=== PATIENT | male | born 1955 | race Caucasian/White ===

== ENCOUNTER 2022-01-01 16:48 | Inpatient (IN) | payer OTHER ==
[~2022-01-01] VITALS: Ht 167.6 cm; Wt 79.4 kg
[~2022-01-01 16:48] MED LIST: ALBUTEROL2.5 MG/3 M INH; AUGMENTIN 875-1 EACH PO; HYDROCODON-ACE1 EAC6 PO; LIPITOR40 MG PO; NABUMETONE750 MG PO; VIBRAMYCIN100 MG PO
[2022-01-01 17:42] LABS: WHITE BLOOD COUNT 12.1 K/UL (4.5-11.0)
[2022-01-01] MEDS ORDERED: HYDROXYCHLOROQ200 MG PO (21:45)
[2022-01-01] MEDS ORDERED: METHOTREXATE T2.5 MG PO (21:46)
[2022-01-01] MEDS ORDERED: OMEPRAZOLE20 MG PO (21:46)
[2022-01-01] MEDS ORDERED: FOLIC ACID1 MG PO (21:47)
[2022-01-02 04:51] LABS: RED BLOOD COUNT 1.68 M/UL (4.20-5.50); WHITE BLOOD COUNT 7.8 K/UL (4.5-11.0)
[2022-01-02 04:53] LABS: HEMOGLOBIN 4.9 gm/dl (14.0-17.5)
--- NOTE | 2022-01-02 05:10 | NUR ---
01/01/2022 @ APPROX 22:50 - Lab employee called this RN regarding patient's blood type. Employee stated that patient has a "special antibody" in his blood that she couldn't determine, therefore she had to send a blood sample to the [facility] to determine what that antibody is to get a correct crossmatch of blood.
--- NOTE | 2022-01-02 05:19 | NUR ---
Lab employee called this RN at this time. Stated she got in contact with the [facility]. The Center told lab employee that it would be another 1-2 hours before the units of blood are here for patient to receive.
[2022-01-02] MEDS ORDERED: LORATADINE10 MG PO (14:31)
[2022-01-02] MEDS ORDERED: FERROUS SULFAT325 MG PO (14:31)
[2022-01-02] MEDS ORDERED: MONTELUKAST SOD10 MG PO (14:32)
[2022-01-02] MEDS ORDERED: PROAIR HFA8.5 GM INH (17:01)
[2022-01-03 05:30] LABS: HEMOGLOBIN 7.4 gm/dl (14.0-17.5); WHITE BLOOD COUNT 6.4 K/UL (4.5-11.0)
[2022-01-03 05:32] LABS: RED BLOOD COUNT 2.56 M/UL (4.20-5.50)
[2022-01-03 07:12] LABS: HBSAG SCREEN Negative (Negative); HEP B CORE AB, TOT Negative (Negative); HEP C VIRUS AB <0.1 (0.0-0.9)
[2022-01-03 09:14] LABS: ANTISTREPTOLYSIN O AB <20.0 IU/mL (0.0-200.0); COMPLEMENT C3, SERUM 80 mg/dL (82-167); COMPLEMENT C4, SERUM 26 mg/dL (12-38)
[2022-01-03 13:09] LABS: ANTI-DSDNA ANTIBODIES 1 IU/mL (0-9)
[2022-01-04 12:32] LABS: RED BLOOD COUNT 2.41 M/UL (4.20-5.50)
[2022-01-04 12:34] LABS: WHITE BLOOD COUNT 3.8 K/UL (4.5-11.0)
[2022-01-04 12:35] LABS: HEMOGLOBIN 6.9 gm/dl (14.0-17.5)
[2022-01-05 05:18] LABS: HEMOGLOBIN 8.8 gm/dl (14.0-17.5)
[2022-01-05 05:22] LABS: RED BLOOD COUNT 3.03 M/UL (4.20-5.50); WHITE BLOOD COUNT 4.9 K/UL (4.5-11.0)
[2022-01-05 13:10] LABS: A/G RATIO 0.8 (0.7-1.7); ALBUMIN 3.4 g/dL (2.9-4.4); ALPHA-1-GLOBULIN 0.2 g/dL (0.0-0.4); ALPHA-2-GLOBULIN 0.6 g/dL (0.4-1.0); BETA GLOBULIN 0.8 g/dL (0.7-1.3); GAMMA GLOBULIN 2.9 g/dL (0.4-1.8); GLOBULIN, TOTAL 4.5 g/dL (2.2-3.9); IMMUNOGLOBULIN A, QN, SERUM 2194 mg/dL (61-437); IMMUNOGLOBULIN G, QN, SERUM 1544 mg/dL (603-1613); IMMUNOGLOBULIN M, QN, SERUM 55 mg/dL (20-172); M-SPIKE 2.3 g/dL (Not Observed); PROTEIN, TOTAL, SERUM 7.9 g/dL (6.0-8.5)
[2022-01-05 14:11] LABS: ATYPICAL PANCA <1:20 titer (Neg:<1:20); CYTOPLASMIC (C-ANCA) <1:20 titer (Neg:<1:20); PERINUCLEAR (P-ANCA) <1:20 titer (Neg:<1:20)
[2022-01-06 05:02] LABS: HEMOGLOBIN 9.7 gm/dl (14.0-17.5); RED BLOOD COUNT 3.32 M/UL (4.20-5.50); WHITE BLOOD COUNT 5.8 K/UL (4.5-11.0)
[2022-01-07 03:18] LABS: HEMOGLOBIN 10.1 gm/dl (14.0-17.5); RED BLOOD COUNT 3.5 M/UL (4.20-5.50); WHITE BLOOD COUNT 6.3 K/UL (4.5-11.0)
[2022-01-08 08:19] LABS: HIV AB/P24 AG SCREEN Non Reactive (Non Reactive)
[2022-01-08 10:14] LABS: CREATININE, URINE 42.2 mg/dL (Not Estab.)
[2022-01-08 11:14] LABS: HBSAG SCREEN Negative (Negative); HEP A AB, IGM Negative (Negative); HEP B CORE AB, IGM Negative (Negative); HEP C VIRUS AB <0.1 (0.0-0.9)
[2022-01-09 12:14] LABS: M-SPIKE, % Comment: % (Not Observed); PROTEIN,TOTAL,URINE 61.9 mg/dL (Not Estab.)
== END 2022-01-07 16:55 | disposition home or self-care (01) | DRG 840 ==
LOC: ER1 16:48 → M/S 19:13 → CDU 19:13 → M/S 20:44
PROVIDERS: Emergency Medicine; Internal Medicine; Internal Medicine Nephrology; ADMIT Internal Medicine Infectious Disease
PROC: 30233N1 Transfusion of Nonautologous Red Blood Cells into Peripheral Vein, Percutaneous Approach (ICD-10-PCS; principal; 2022-01-02)
PROC: 30233N1 Transfusion of Nonautologous Red Blood Cells into Peripheral Vein, Percutaneous Approach (ICD-10-PCS; 2022-01-04)
PROC: 079T3ZX Drainage of Bone Marrow, Percutaneous Approach, Diagnostic (ICD-10-PCS; 2022-01-06)
DX: C90.00 Multiple myeloma not having achieved remission (principal); N17.0 Acute kidney failure with tubular necrosis; E87.2 Acidosis; D58.9 Hereditary hemolytic anemia, unspecified; J60 Coalworker's pneumoconiosis; E78.5 Hyperlipidemia, unspecified; G89.29 Other chronic pain; M54.9 Dorsalgia, unspecified; K21.9 Gastro-esophageal reflux disease without esophagitis; I25.10 Atherosclerotic heart disease of native coronary artery without angina pectoris; D63.1 Anemia in chronic kidney disease; M06.9 Rheumatoid arthritis, unspecified; G25.3 Myoclonus; E87.5 Hyperkalemia; I25.2 Old myocardial infarction; N18.30 Chronic kidney disease, stage 3 unspecified; Z98.890 Other specified postprocedural states; Z63.5 Disruption of family by separation and divorce; Z79.899 Other long term (current) drug therapy; D50.9 Iron deficiency anemia, unspecified; D47.2 Monoclonal gammopathy
CPT/HCPCS: 36415; 71045; 76700; 77075; 80048; 80053; 80074; 81001; 82043; 82232; 82270; 82550; 82553; 82570; 82607; 82728; 82746; 82784; 82803; 83010; 83520; 83540; 83550; 83605; 83615; 83735; 83880; 83883; 84100; 84133; 84155; 84156; 84165; 84166; 84300; 84439; 84443; 84484; 84550; 85014; 85018; 85025; 85045; 85610; 85730; 85810; 86038; 86060; 86140; 86156; 86160; 86225; 86256; 86334; 86335; 86430; 86431; 86704; 86706; 86708; 86803; 86850; 86880; 86900; 86901; 86920; 86922; 87340; 87389; 89050; 93005; 94640; 94664; 94760; 99285; J1644; J1756; J2405; P9016; P9047; U0002

== ENCOUNTER 2022-01-12 12:53 | Emergency (ER) | payer OTHER ==
[~2022-01-12 12:53] MED LIST changes: +FERROUS SULFAT325 MG PO; +FOLIC ACID1 MG PO; +HYDROXYCHLOROQ200 MG PO; +LORATADINE10 MG PO; +METHOTREXATE T2.5 MG PO; +MONTELUKAST SOD10 MG PO; +OMEPRAZOLE20 MG PO; +PROAIR HFA8.5 GM INH
[2022-01-12 14:01] LABS: HEMOGLOBIN 9.8 gm/dl (14.0-17.5); RED BLOOD COUNT 3.42 M/UL (4.20-5.50); WHITE BLOOD COUNT 4.7 K/UL (4.5-11.0)
[2022-01-12] MEDS ORDERED: BMP Blood Test (16:38)
[2022-01-12] MEDS ORDERED: SPS15 GM/60 M PO (16:38)
[2022-01-12] MEDS ORDERED: BLOOD TEST (16:38)
== END 2022-01-12 17:03 | disposition home or self-care (01) ==
LOC: ER1 12:53
DX: E87.5 Hyperkalemia (principal); M06.9 Rheumatoid arthritis, unspecified
CPT/HCPCS: 80053; 81001; 83605; 85025; 99284

== ENCOUNTER 2022-01-14 09:42 | Emergency (ER) | payer OTHER ==
[~2022-01-14 09:42] MED LIST changes: +BLOOD TEST; +BMP Blood Test; +SPS15 GM/60 M PO
[2022-01-14 10:55] LABS: HEMOGLOBIN 9.8 gm/dl (14.0-17.5); RED BLOOD COUNT 3.39 M/UL (4.20-5.50)
[2022-01-14 10:59] LABS: WHITE BLOOD COUNT 10.3 K/UL (4.5-11.0)
[2022-01-14] MEDS ORDERED: SODIUM BICARBO650 M1 PO (15:25)
== END 2022-01-14 21:57 | disposition home or self-care (01) ==
LOC: ER1 09:42
PROVIDERS: Physician Assistant
DX: E86.0 Dehydration (principal); N18.9 Chronic kidney disease, unspecified; D63.1 Anemia in chronic kidney disease; H53.8 Other visual disturbances; E78.5 Hyperlipidemia, unspecified; Z85.79 Personal history of other malignant neoplasms of lymphoid, hematopoietic and related tissues
CPT/HCPCS: 70450; 80053; 82550; 82553; 84484; 85025; 93005; 99284

== ENCOUNTER → 2022-01-15 | Outpatient (CLI) | payer OTHER ==
[~2022-01-15] MED LIST changes: +SODIUM BICARBO650 M1 PO
== END ==
LOC: LAB 08:07
PROVIDERS: Internal Medicine
DX: C90.00 Multiple myeloma not having achieved remission (principal)
CPT/HCPCS: 36415; 80053; 82728; 83540; 83550

== ENCOUNTER → 2022-01-19 | Outpatient (CLI) | payer OTHER ==
[2022-01-19 08:56] LABS: HEMOGLOBIN 11.3 gm/dl (14.0-17.5); RED BLOOD COUNT 3.86 M/UL (4.20-5.50); WHITE BLOOD COUNT 6.7 K/UL (4.5-11.0)
== END ==
LOC: EROP 08:17
PROVIDERS: Internal Medicine
DX: C90.00 Multiple myeloma not having achieved remission (principal)
CPT/HCPCS: 80053; 85025; 96360; 96361

== ENCOUNTER → 2022-01-22 | Outpatient (CLI) | payer OTHER, MEDICAID ==
[~2022-01-22] MED LIST changes: +ASPIRIN EC81 MG PO; +CLOPIDOGREL75 MG PO; +CYCLOPHOSPHAMID50 MG PO; +SODIUM BICARBO650 MG PO
== END ==
LOC: LAB 08:34
PROVIDERS: Internal Medicine
DX: C90.00 Multiple myeloma not having achieved remission (principal)
CPT/HCPCS: 36415; 80053

== ENCOUNTER 2022-01-23 09:40 | Inpatient (IN) | payer OTHER, MEDICAID ==
[~2022-01-23] VITALS: Ht 167.6 cm; Wt 78.0 kg
[~2022-01-23 09:40] MED LIST changes: -ALBUTEROL2.5 MG/3 M INH; -ASPIRIN EC81 MG PO; -CLOPIDOGREL75 MG PO; -CYCLOPHOSPHAMID50 MG PO; -HYDROCODON-ACE1 EAC6 PO; -SODIUM BICARBO650 MG PO
[2022-01-23 11:39] LABS: HEMOGLOBIN 10.6 gm/dl (14.0-17.5); RED BLOOD COUNT 3.64 M/UL (4.20-5.50); WHITE BLOOD COUNT 4.7 K/UL (4.5-11.0)
[2022-01-23] MEDS ORDERED: CYCLOPHOSPHAMID50 MG PO (15:57)
[2022-01-23] MEDS ORDERED: SODIUM BICARBO650 MG PO (15:59)
[2022-01-23] MEDS ORDERED: HYDROCODON-ACE1 EAC6 PO (16:58)
[2022-01-23] MEDS ORDERED: ALBUTEROL2.5 MG/3 M INH (17:00)
--- NOTE | 2022-01-23 23:57 | NUR ---
PATIENT HAS HAD PREVIOUS FALL. PATIENT REFUSED BED ALARMS. EDUCATED PATIENT ON SAFETY.
[2022-01-24 06:36] LABS: HEMOGLOBIN 9.6 gm/dl (14.0-17.5); RED BLOOD COUNT 3.36 M/UL (4.20-5.50); WHITE BLOOD COUNT 4.6 K/UL (4.5-11.0)
[2022-01-25 08:36] LABS: HEMOGLOBIN 9.8 gm/dl (14.0-17.5); RED BLOOD COUNT 3.35 M/UL (4.20-5.50); WHITE BLOOD COUNT 4.6 K/UL (4.5-11.0)
[2022-01-26 06:31] LABS: RED BLOOD COUNT 3.15 M/UL (4.20-5.50); WHITE BLOOD COUNT 4.7 K/UL (4.5-11.0)
[2022-01-26 15:10] LABS: A/G RATIO 0.9 (0.7-1.7); ALBUMIN 3.5 g/dL (2.9-4.4); ALPHA-1-GLOBULIN 0.2 g/dL (0.0-0.4); ALPHA-2-GLOBULIN 0.6 g/dL (0.4-1.0); BETA GLOBULIN 0.8 g/dL (0.7-1.3); GAMMA GLOBULIN 2.5 g/dL (0.4-1.8); GLOBULIN, TOTAL 4.1 g/dL (2.2-3.9); IMMUNOGLOBULIN A, QN, SERUM 1957 mg/dL (61-437); IMMUNOGLOBULIN G, QN, SERUM 1179 mg/dL (603-1613); IMMUNOGLOBULIN M, QN, SERUM 55 mg/dL (20-172); M-SPIKE 1.9 g/dL (Not Observed); PROTEIN, TOTAL, SERUM 7.6 g/dL (6.0-8.5)
[2022-01-26 16:11] LABS: ANTI-DSDNA ANTIBODIES <1 IU/mL (0-9); RNP ANTIBODIES <0.2 AI (0.0-0.9); SMITH ANTIBODIES <0.2 AI (0.0-0.9)
[2022-01-26 17:11] LABS: COMPLEMENT C3, SERUM 96 mg/dL (82-167); COMPLEMENT C4, SERUM 21 mg/dL (12-38)
[2022-01-27 09:01] LABS: HEMOGLOBIN 10.4 gm/dl (14.0-17.5)
[2022-01-27 09:05] LABS: RED BLOOD COUNT 3.55 M/UL (4.20-5.50); WHITE BLOOD COUNT 6.6 K/UL (4.5-11.0)
[2022-01-27] MEDS ORDERED: CLOPIDOGREL75 MG PO (13:00)
[2022-01-27] MEDS ORDERED: ASPIRIN EC81 MG PO (13:00)
[2022-01-27 13:15] LABS: ANTIHISTONE ANTIBODIES 1.1 Units (0.0-0.9)
[2022-01-28 16:13] LABS: ANTIMYELOPEROXIDASE (MPO) ABS <9.0 U/mL (0.0-9.0); ANTIPROTEINASE 3 (PR-3) ABS <3.5 U/mL (0.0-3.5); ATYPICAL PANCA <1:20 titer (Neg:<1:20); CYTOPLASMIC (C-ANCA) <1:20 titer (Neg:<1:20); PERINUCLEAR (P-ANCA) <1:20 titer (Neg:<1:20)
== END 2022-01-27 17:12 | disposition home health service (06) | DRG 64 ==
LOC: ER1 09:40 → CDU 14:07 → MED SURG 4 14:07
PROVIDERS: Internal Medicine; Internal Medicine Nephrology; Physician Assistant; ADMIT Internal Medicine
PROC: B24BZZZ Ultrasonography of Heart with Aorta (ICD-10-PCS; principal; 2022-01-23)
DX: I63.39 Cerebral infarction due to thrombosis of other cerebral artery (principal); G93.6 Cerebral edema; C90.00 Multiple myeloma not having achieved remission; N17.9 Acute kidney failure, unspecified; Z20.822 Contact with and (suspected) exposure to COVID-19; H54.7 Unspecified visual loss; N18.30 Chronic kidney disease, stage 3 unspecified; D50.9 Iron deficiency anemia, unspecified; R59.1 Generalized enlarged lymph nodes; R16.0 Hepatomegaly, not elsewhere classified; M06.9 Rheumatoid arthritis, unspecified; I12.9 Hypertensive chronic kidney disease with stage 1 through stage 4 chronic kidney disease, or unspecified chronic kidney disease; N18.9 Chronic kidney disease, unspecified; D63.1 Anemia in chronic kidney disease; J60 Coalworker's pneumoconiosis; E78.5 Hyperlipidemia, unspecified; Z79.01 Long term (current) use of anticoagulants; Z79.82 Long term (current) use of aspirin; Z87.891 Personal history of nicotine dependence
CPT/HCPCS: ECHO; 0240U; 36415; 70551; 80048; 80053; 80061; 81001; 82550; 82553; 82595; 82784; 83520; 83735; 84100; 84155; 84165; 84484; 85025; 85027; 85610; 85730; 86038; 86140; 86160; 86162; 86225; 86256; 86334; 92507; 92610; 93005; 93306; 93880; 97162; 97166; 97530; 97535; 99285; J7030

== ENCOUNTER → 2022-01-23 | Outpatient (CLI) | payer OTHER, MEDICAID | LOC: MRI 07:47 | DX: G45.9 Transient cerebral ischemic attack, unspecified (principal); R90.89 Other abnormal findings on diagnostic imaging of central nervous system | CPT/HCPCS: 70544; 70551 ==

== ENCOUNTER → 2022-02-16 | Outpatient (CLI) | payer OTHER ==
[~2022-02-16] MED LIST changes: +ALBUTEROL2.5 MG/3 M INH; +ASPIRIN EC81 MG PO; +CLOPIDOGREL75 MG PO; +CYCLOPHOSPHAMID50 MG PO; +HYDROCODON-ACE1 EAC6 PO; +SODIUM BICARBO650 MG PO
== END ==
LOC: HEART CORB 08:53
DX: G45.9 Transient cerebral ischemic attack, unspecified (principal)

== ENCOUNTER → 2022-03-31 | Outpatient (CLI) | payer OTHER ==
[2022-04-01 10:14] LABS: CREATININE, URINE 61.7 mg/dL (Not Estab.)
== END ==
LOC: LAB 11:00
PROVIDERS: Internal Medicine Nephrology
DX: N17.9 Acute kidney failure, unspecified (principal)
CPT/HCPCS: 36415; 80053; 81001; 82043; 82570; 84156